=== PATIENT | male | born 1945 | race Caucasian/White ===

== ENCOUNTER 2022-10-29 18:54 | Emergency (ER) | payer OTHER, MEDICARE ==
[2022-10-29] VITALS (11 sets, daily range): BP systolic 84–134; BP diastolic 54–79
[~2022-10-29 18:54] MED LIST: ACCUPRIL5 MG PO; ACIPHEX20 MG PO; ASPIRIN81 MG PO; BENTYL10 MG PO; ENALAPRIL5 MG PO; GLIPIZIDE ER2.5 MG PO; KEPPRA XR500 MG PO; KEPPRA1000 MG PO; METFORMIN500 MG PO; MULTI VIT PO; PERCOCET 10/31 COMBO PO; WARFARIN5 MG PO; WARFARIN7.5 MG PO
[2022-10-29 19:28] LABS: BASO% 0.1 % (0-3); EOS% 1.5 % (0-8); HEMATOCRIT 34.3 % (39.0-50.0); HEMOGLOBIN 10.7 g/dl (14.0-18.0); MEAN CELL VOLUME 98.6 fL CALC (80.0-100.0); MEAN CORPUSCULAR HGB 30.7 pG CALC (26.0-32.0); MEAN CORPUSCULAR HGB CONC 31.2 g/dL CAL (32.0-36.0); MONO% 6.2 % (2-13); NEUT# 4.06 thou/uL (1.82-7.42); NEUT% 57.2 % (42-76); RED BLOOD COUNT 3.48 mill/uL (4.70-6.10); RED CELL DISTRI WIDTH 13.8 % (11.5-15.5)
[2022-10-29 19:33] LABS: ALBUMIN 3.4 g/dL (3.2-5.0); ALKALINE PHOSPHATASE 48 u/l (38-126); ANION GAP 11 (6-22 (CALC)); BILIRUBIN, TOTAL 0.2 mg/dL (0.2-1.3); BUN 11 mg/dL (8-23); BUN/CREATININE RATIO 11 (12-20 (CALC)); CARBON DIOXIDE 20 mmol/l (22-30); CHLORIDE 107 mmol/l (95-108); GFR FOR AFR.AMER. > 60 ML/MIN (>=60 (CALC)); GFR OTHER RACES > 60 ML/MIN (>=60 (CALC)); POTASSIUM 4.8 mmol/l (3.5-5.1); SGOT/AST 47 u/l (19-48); SODIUM 134 mmol/l (137-146); TOTAL PROTEIN 6.4 g/dL (6.3-8.2)
[2022-10-29 19:38] LABS: INTERNATIONAL NORMALIZED RATIO 1.7 RATIO (0.7-1.3); PROTHROMBIN TIME 16.1 SECONDS (9.0-12.5)
== END 2022-10-29 22:10 | disposition expired | DRG 999 ==
LOC: ED 18:54
PROVIDERS: Emergency Medicine
PROC: 05H633Z Insertion of Infusion Device into Left Subclavian Vein, Percutaneous Approach (ICD-10-PCS; principal; 2022-10-29)
DX: S06.2X9A Diffuse traumatic brain injury with loss of consciousness of unspecified duration, initial encounter (principal); S14.11 Complete lesion of cervical spinal cord; S12.600A Unspecified displaced fracture of seventh cervical vertebra, initial encounter for closed fracture; S12.500A Unspecified displaced fracture of sixth cervical vertebra, initial encounter for closed fracture; V29.408A Other motorcycle driver injured in collision with unspecified motor vehicles in traffic accident, initial encounter; I46.9 Cardiac arrest, cause unspecified; S01.90XA Unspecified open wound of unspecified part of head, initial encounter; S41.102A Unspecified open wound of left upper arm, initial encounter; S41.101A Unspecified open wound of right upper arm, initial encounter; S81.802A Unspecified open wound, left lower leg, initial encounter; S81.801A Unspecified open wound, right lower leg, initial encounter
CPT/HCPCS: P9016